=== PATIENT | female | born 1980 | race Caucasian/White ===

== ENCOUNTER → 2022-03-17 | Outpatient (CLI) | payer OTHER ==
[~2022-03-17] MED LIST: IBUPROFEN800 MG PO; KEFLEX500 MG PO; NORCO 7.5-3251 EACH PO; PREDNISONE20 MG PO
== END ==
LOC: KOH-I 09:39
DX: S92.352A Displaced fracture of fifth metatarsal bone, left foot, initial encounter for closed fracture (principal)
CPT/HCPCS: 73630

== ENCOUNTER → 2022-04-15 | Outpatient (CLI) | payer OTHER | LOC: KOH-I 10:12 | DX: S92.902A Unspecified fracture of left foot, initial encounter for closed fracture (principal); X58.XXXA Exposure to other specified factors, initial encounter | CPT/HCPCS: 73630 ==

== ENCOUNTER → 2022-05-27 | Outpatient (CLI) | payer OTHER | LOC: KOH-I 10:06 | DX: M25.572 Pain in left ankle and joints of left foot (principal) | CPT/HCPCS: 73610; 73630 ==

== ENCOUNTER 2022-06-10 14:44 | Emergency (ER) | payer OTHER ==
[2022-06-10 16:14] LABS: HEMOGLOBIN 13.3 gm/dl (12.3-15.3); RED BLOOD COUNT 4.39 M/UL (4.00-5.10)
[2022-06-10 16:35] LABS: BUN/CREATININE RATIO 13 (0-10)
== END 2022-06-10 17:50 | disposition left against medical advice (07) ==
LOC: ER1 14:44
PROVIDERS: Emergency Medicine
DX: R10.9 Unspecified abdominal pain (principal); M54.9 Dorsalgia, unspecified
CPT/HCPCS: 80053; 81001; 83690; 84703; 85025; 99281